=== PATIENT | female | born 1985 | race Caucasian/White ===

== ENCOUNTER → 2016-08-18 08:20 | Outpatient (CLI) | payer BC | END | disposition home or self-care (01) | LOC: D.CT 08:20 | DX: G43.011 Migraine without aura, intractable, with status migrainosus (principal) ==

== ENCOUNTER → 2019-03-27 07:41 | Outpatient (CLI) | payer MEDICARE | END | disposition home or self-care (01) | LOC: D.CT 07:41 | PROVIDERS: ATTEND Family Medicine | DX: N39.0 Urinary tract infection, site not specified (principal); R10.9 Unspecified abdominal pain ==